=== PATIENT | female | born 1980 | race Caucasian/White ===

== ENCOUNTER 2022-06-07 01:58 | Emergency (ER) | payer BC ==
[2022-06-07 02:05] VITALS: BP 124/84; PULSE 102; RESP 18; TEMP 98; BMI 31.3
== END 2022-06-07 03:59 | disposition home or self-care (01) ==
LOC: FER 01:58
DX: O03.9 Complete or unspecified spontaneous abortion without complication (principal)
CPT/HCPCS: 76817-TC; 99284-25